=== PATIENT | female | born 1990 | race African-American/Black ===

== ENCOUNTER 2017-06-15 08:52 | Inpatient (IN) | payer OTHER ==
[2017-06-15] MEDS ORDERED: CITRIC ACID/SODIUM CITRATE 30 ML UNIT-DOSE CUP PO ONE (11:27)
[2017-06-15] MEDS ORDERED: ELECTROLYTE-148 SOLN 500 ML IV ONE (11:27)
[2017-06-15] MEDS ORDERED: ELECTROLYTE-148 SOLN 1,000 ML IV SCH (11:30)
[2017-06-15 11:36] VITALS: BMI 31.9
[2017-06-15 11:41] LABS: URINE APPEARANCE SLCLOUDY; URINE BILIRUBIN NEGATIVE (NEGATIVE); URINE BLOOD NEGATIVE (NEGATIVE); URINE COLOR YELLOW; URINE GLUCOSE (UA) NEGATIVE (NEGATIVE); URINE KETONE NEGATIVE (NEGATIVE); URINE NITRITE NEGATIVE (NEGATIVE); URINE PROTEIN NEGATIVE (NEGATIVE); URINE UROBILINOGEN NEGATIVE mg/dL (0.2-1.0)
[2017-06-15 11:42] LABS: COCAINE, UR NEGATIVE ng/ml (CUTOFF=300); METHADONE, UR NEGATIVE ng/ml (CUTOFF=300); OPIATES, URI NEGATIVE ng/ml (CUTOFF=300); PHENCYCLIDINE,URINE NEGATIVE ng/ml (CUTOFF=25); URINE AMPHETAMINES NEGATIVE ng/ml (CUTOFF=500); URINE BARBITURATES NEGATIVE ng/ml (CUTOFF=200); URINE BENZODIAZEPINES NEGATIVE ng/ml (CUTOFF=200)
[2017-06-15 11:43] LABS: URINE LEUK ESTERASE 1+ (NEGATIVE)
[2017-06-15 11:48] LABS: BASO % 0.2 % (0-2.0); EOS % 0.2 % (0-4.5); HEMATOCRIT 28.1 % (32.4-45.2); HEMOGLOBIN 8.3 GM/dL (10.7-15.3); LYMPH % 15.8 % (8-40); MCHC 29.5 g/dl (32.0-36.0); MEAN CELL VOLUME 63.7 fl (80-96); MEAN PLT VOLUME 8.5 fl (7.5-11.1); MONO % 6.3 % (3.8-10.2); NEUT % 77.5 % (42.8-82.8); PLATELET COUNT 174 K/MM3 (134-434); RBC 4.41 M/mm3 (3.60-5.2); RDW 19.8 % (11.6-15.6)
[2017-06-15 11:50] LABS: ADD RBC MORPHOLOGY YES; INR 1.02 (0.82-1.09); MCH 18.8 pg (25.7-33.7); PROTHROMBIN TIME (PATIENT) 11.5 SEC (9.98-11.88)
[2017-06-15 11:50] LABS: EPI CELLS MODERATE /HPF (FEW)
[2017-06-15 11:53] LABS: ACTIVATED PTT 24.7 SECONDS (26.9-34.4)
[2017-06-15 11:55] LABS: ALBUMIN 2.5 g/dl (3.4-5.0); ANION GAP 10 (8-16); BLOOD UREA NITROGEN 6 mg/dL (7-18); CALCIUM 8.3 mg/dL (8.5-10.1); CHLORIDE 107 mmol/L (98-107); CO2 22 mmol/L (21-32); CREATININE 0.6 mg/dL (0.55-1.02); GLUCOSE,RANDOM 74 mg/dL (74-106); POTASSIUM 4.3 mmol/L (3.5-5.1); SGOT/AST 21 U/L (15-37); SGPT/ALT 23 U/L (12-78); SODIUM 139 mmol/L (136-145); URIC ACID 4.2 mg/dL (2.6-7.2)
[2017-06-15 11:57] LABS: ALK PHOS 193 U/L (45-117); BILIRUBIN,TOTAL 0.4 mg/dL (0.2-1.0); TOT PROT 6.3 g/dl (6.4-8.2)
[2017-06-15 12:10] LABS: ANISOCYTOSIS 2+
--- NOTE | 2017-06-15 12:33 | HP ---
Past Medical History - Primary Care Physician PCP:: Malka Viera - Admission Chief Complaint: 26 yrs , 39.2 weeks ,previous c/section requests for repeat c/section History of Present Illness: pt presented today c/o pain , no uc were note, cx was closed, she was not in labor . sonogram was done report : 38.6/7 weeks, sliup, vx, LORE 14.8 cm , ant placenta , Bpp8/8 Pt requested for repeat c/section care in [facility], , late registered at [address] [place] [address] on 05/13/17t 34 weeks . .work up : O pos, Rpr nr, Rubella pos, Hbsag neg, Quantiferon neg, Hgba1c 5.7, Hiv neg, Gbs neg, gc/ct neg, pap NILM h/o depression during , she took zoloft 50 mg po daily ,for 1 week, she stopped . she states she is seeing psyche social contact worker q 1 week at [address] [place] [address] History Source: Patient, Medical Record Limitations to Obtaining History: No Limitations - Past Medical History PROP MAKER: No: CVA, Migraine, Seizure Cardiovascular: No: HTN, Murmur Pulmonary: Yes: Asthma (rx albuterol PRN) Gastrointestinal: Yes: Constipation Hepatobiliary: No: Cholelithiasis Renal/: No: UTI ...: 3 ...Para: 2 (12/22/2007 6'8' [facility] ) ...Term: 2 ( primary lftc/s, 7'8" nonreassuring fhr , h/o post epidural pt unresponsive [facility]) ...: 0 ...Spon : 0 ...Induced : 0 ...Multiple Gestation: 0 ...LMP: 09/26/16 ... Weeks Gestation by Dates: 37.3 ...EDC by Dates: 07/03/17 ...EDC by Sono: 06/20/17 (39.2 weeks by sono of 15.5 weeks, on 01/01/2017 ) Heme/Onc: Yes: Anemia Psych: Yes: Anxiety, Depression (h/o during current pregn, rx po zoloft for 1 week h/o pp depression post 2 nd delivery treatment at [facility]), Panic, Other (agrophobia) - Past Surgical History Past Surgical History: Yes: (06/18/2015) Hx Myomectomy: No Hx Transabdominal Cerclage: No - Smoking History Smoking history: Never smoked - Alcohol/Substance Use Hx Alcohol Use: No History of Substance Use: reports: None Home Medications - Allergies Allergies/Adverse Reactions: Allergies Allergy/AdvReac Type Severity Reaction Status Date / Time No Known Allergies Allergy Verified 06/15/17 11:39 - Home Medications Home Medications: Ambulatory Orders Albuterol Sulfate Inhaler - [Ventolin Hfa Inhaler -] 1 - 2 inh PO QID PRN Ferrous Sulfate [Feosol] 325 mg PO DAILY 06/15/17 Family Disease History - Family Disease History Family Disease History: Other: Mother (extreme anxiety and panic) Physical Exam - Maternity Vital Signs: Vital Signs Temperature 98.6 F 06/15/17 12:00 Pulse Rate 94 H 06/15/17 12:00 Respiratory Rate 20 06/15/17 12:00 Blood Pressure 106/57 06/15/17 12:00 O2 Sat by Pulse Oximetry (%) Selected Entries 06/15/17 10:40 Weight 192 lb Constitutional: Yes: Well Nourished, No Distress Eyes: Yes: WNL HENT: Yes: WNL, Normocephalic Neck: Yes: WNL Cardiovascular: Yes: WNL, Regular Rate and Rhythm Lungs: Clear to auscultation Breast(s): Yes: WNL - Abdominal Exam/OB Fundal Height: 40 Number of Fetuses: Single Presentation: Vertex Contractions: No Monitor Mode: External Heart Rate (range): 130 Heart Rate Location: [facility] Category: I Accelerations: Uniform Decelerations: None - Vaginal Exam/OB Vaginal Bleediing: No Speculum Exam: No Dilatation (cm): close Effacement (%): unefface Presentation: Vertex/Position Station: -3 - Physical Exam Musculoskeletal: Yes: WNL Extremities: Yes: WNL. No: Calf Tenderness Edema: Yes Edema: LLE: 1+, RLE: 1+ Integumentary: Yes: WNL, Incision (old pfannensteil scar) Deep Tendon Reflex Grade: Normal +2 ...Motor Strength: WNL Psychiatric: Yes: WNL, Alert, Oriented - Labs Lab Results: CBC, BMP 06/15/17 11:05 06/15/17 11:05 Laboratory Tests 06/15/17 06/15/17 06/15/17 09:00 09:00 11:05 PT with INR 11.50 INR 1.02 PTT (Actin FS) 24.7 L Calcium AST ALT Urine Protein Negative Urine WBC (Auto) 4 Urine RBC (Auto) 2 Opiates Screen Negative Methadone Screen Negative Barbiturate Screen Negative Phencyclidine Screen Negative Ur Amphetamines Screen Negative MDMA (Ecstasy) Screen Negative Benzodiazepines Screen Negative Cocaine Screen Negative U Marijuana (THC) Screen Negative 06/15/17 11:05 PT with INR INR PTT (Actin FS) Calcium 8.3 L AST 21 ALT 23 D Urine Protein Urine WBC (Auto) Urine RBC (Auto) Opiates Screen Methadone Screen Barbiturate Screen Phencyclidine Screen Ur Amphetamines Screen MDMA (Ecstasy) Screen Benzodiazepines Screen Cocaine Screen U Marijuana (THC) Screen Hemorrhage Risk Assessment - Risk Factors Medium Risk Factors: Yes: Prior , uterine surgery,or multiple laparotomies Risk Score: 1 Risk Level: Medium Risk Problem List - Problems (1) with 39 completed weeks gestation Code(s): Z3A.39 - 39 WEEKS GESTATION OF (2) Previous section Code(s): Z98.891 - HISTORY OF UTERINE SCAR FROM PREVIOUS SURGERY (3) Anemia Code(s): D64.9 - ANEMIA, UNSPECIFIED Qualifiers: Anemia type: iron deficiency Iron deficiency anemia type: inadequate dietary iron intake Qualified Code(s): D50.8 - Other iron deficiency anemias (4) Depression affecting Code(s): O99.340 - OTH MENTAL DISORDERS COMPLICATING , UNSP TRIMESTER; F32.9 - MAJOR DEPRESSIVE DISORDER, SINGLE EPISODE, UNSPECIFIED (5) Depression affecting , antepartum Code(s): O99.340 - OTH MENTAL DISORDERS COMPLICATING , UNSP TRIMESTER; F32.9 - MAJOR DEPRESSIVE DISORDER, SINGLE EPISODE, UNSPECIFIED Assessment/Plan 26 years , previous c/section, 39.2/7 weeks, requets for Repeat c/section. gbs unknown , anemia Plan repeat LFTc/s
[2017-06-15] MEDS ORDERED: ceFAZolin SODIUM 1 GM VIAL ONE (16:03)
[2017-06-15] MEDS ORDERED: morphine SULFATE/Preservative Free 0.5 MG/ML (1cc Syringe) ONE (16:03)
[2017-06-15] MEDS ORDERED: OXYTOCIN 20 UNITS in 0.9% NS 20 UNIT/1,000 ML INFUS.BAG IV ONE ×2 (16:23→18:00)
[2017-06-15] MEDS ORDERED: ePHEDrine SULFATE 50 MG/1 ML AMPULE ONE (16:56)
[2017-06-15] MEDS ORDERED: MIDAZOLAM HCL 2 MG/2 ML SINGLE DOSE VIAL ONE (17:16)
[2017-06-15] MEDS ORDERED: morphine SULFATE/Preservative Free 0.5 MG/ML (1cc Syringe) SPIN ONE (17:34)
[2017-06-15] MEDS ORDERED: ONDANSETRON 4 MG/2 ML VIAL IVPUSH PRN (17:34)
[2017-06-15] MEDS ORDERED: IBUPROFEN 600 MG TABLET (FP) PO PRN (17:34)
[2017-06-15] MEDS ORDERED: ACETAMINOPHEN 325 MG TABLET (FP) PO PRN (17:34)
[2017-06-15] MEDS ORDERED: SENNOSIDES/DOCUSATE COMBO (SENNA PLUS) TABLET (UD) PO PRN (17:48)
[2017-06-15] MEDS ORDERED: METHYLERGONOVINE MALEATE 0.2 MG/1 ML AMP IM PRN (17:48)
[2017-06-15] MEDS: OXYTOCIN 20 UNITS in 0.9% NS 20 UNIT/1,000 ML INFUS.BAG IV SCH (18:00)
--- NOTE | 2017-06-15 18:07 | PN ---
Delivery - Delivery Section: Repeat, Low Flap Transverse (39.2 weeks, previous c/s, requets repeat c/s) Type of Anesthesia: Spinal Episiotomy/Laceration: None EBL (cc): 800 (loyola output 50 ml courtney color ) Delivery, Single - Stages of Labor Date of Delivery: 06/15/17 Time of Delivery: 17:00 Time Placenta Delivered: 17:01 Placenta: Yes: Manual Removal, Uterine Exploration - Condition of Infant Supervisor [employer]/Computer Science Professor Present: Yes Name: Lizbeth Renee Infant Gender: Female Weight: 8 lb 3 oz Position: Right, OP Total Hours ROM (Hrs/Mins): 0hrs 2min - 1 Minute Total Score: 9 5 Minutes Total Score: 9 - Feeding Plan Initial Plan: Elected not to breastfeed exclusively throughout hospitalization Remarks - Remarks Remarks: 26 yrs , previous c/section x1, 39.2/7 weeks, previous c/section , Gbs neg pnc at , [facility], late registrant h/o anemia h/o depression . intra op course uneventful
--- NOTE | 2017-06-15 18:13 | OP ---
Operative Note - Note: Operative Date: 06/15/17 Pre-Operative Diagnosis: 39.2/7 weeks, previous c/s requests repeat c/s Operation: Repeat LFTC/section Findings: 5.00 PM , Baby Girl, 9/9, ROP position , Wt 8'3" AFluid large amount, clear, courtney color Both tubes & ovaries normal Dr Renee contractor buyer present in the OR Surgeon: Malka Viera Tool Inspector: Agustín Shepard Anesthesiologist/PODIATRIST ORTHOPEDIC: Seamus Dutton Anesthesia: Spinal Specimens Removed: cord blood. placenta Estimated Blood Loss (mls): 800 Drains, Volume Out (mls): 50 (courtney loyola output ) Fluid Volume Replaced (mls): 1,800 (IV Ancef 2 gm prior to incision ) Operative Report Dictated: Yes
[2017-06-15] MEDS ORDERED: IBUPROFEN 800 MG/8 ML IJ IVPB ONE (18:34)
[2017-06-15] MEDS: IBUPROFEN 800 MG/8 ML IJ IVPB PRN (18:39)
--- NOTE | 2017-06-15 18:51 | OP ---
DATE OF OPERATION: 06/15/2017 PREOPERATIVE DIAGNOSIS: Patient at 39-2/7 weeks, previous section, requests repeat section. OPERATION DONE: Repeat low-flap transverse section. SURGEON: Malka Viera MD FIELD HEALTH OFFICER SURGEON: SPARKLE Caballero ANESTHESIOLOGIST: Seamus Dutton MD ANESTHESIA: Spinal. FINDINGS: This is a 26-year-old, 3, para 2-0-0-2, with previous section x1, is at 39-2/7 weeks, came with complaints of pain, cervix was closed, patient was not in labor. She requested for repeat section, and biophysical profile was 8/8. PROCEDURE: Abdomen was shaved, prepped. Kate was placed. Patient was taken to the operating room table. Spinal anesthesia was given. She was placed in supine position. Abdomen was painted and draped in the usual manner. A Pfannenstiel incision was made around the previous scar, which was keloid, and the previous scar was excised and subcutaneous tissue, anterior rectus sheath was incised transversely. Bleeding points were clamped and cauterized. Rectus muscle was from the rectus sheath. Parietal peritoneum was opened vertically. Lower flap parietal peritoneum was incised transversely. Bladder was pushed down. Lower uterine segment was incised transversely. Amniotic fluid was large amount, clear. Then the baby was delivered from ROP position at 5 p.m. was 9 and 9. Cord was clamped, cut, cord blood was collected. Baby girl. Baby's weight was [address] Renee, strategic marketing leader, was present in the OR. Then placenta was removed completely with the membranes. Uterine massage was given and anesthesiologist was asked to increase the Pitocin in the IV fluid, and then closure of the uterine incision was done in 2 layers, first layer was a continuous locking with a Biosyn 0 suture, second was a continuous intermittent locking with a Biosyn 0 suture. A second layer with vertical mattress sutures was taken. Bladder peritoneum also was closed with Biosyn 0 suture and continuous sutures were taken. Hemostasis was verified. Both tubes and ovaries were normal. Sponge, instrument, needle count was correct. Irrigation was done. Then the closure of the abdomen was done. Parietal peritoneum was closed with Vicryl 0 suture. Muscles were reapproximated together with Vicryl 0 interrupted sutures underneath the rectus sheath flaps. Hemostasis was checked. Anterior rectus sheath was closed with Vicryl 0 continuous sutures. Hemostasis was checked in subcutaneous tissue. Subcutaneous tissue was reapproximated with Biosyn 0 suture. The skin was approximated with karina. Pressure dressing was given. Blood clots were removed from the vagina. The uterus was now firm. Estimated blood loss was 800 mL intraoperatively. Urine output was 50 mL. It was courtney color. IV fluids 1800 mL she received. She received 2 g of IV Ancef prior to the incision. She was transferred to the recovery room in stable condition. Fletcher [id number]
[2017-06-16] MEDS ORDERED: OXYTOCIN 20 UNITS in 0.9% NS 40 UNIT/2,000 ML INFUS.BAG IV ONE (01:36)
[2017-06-16] MEDS: CEFAZOLIN 1 GM PUSH 1 GM/10 ML DISP.SYRIN IVPUSH SCH ×3 (01:48→17:14)
[2017-06-16] MEDS ORDERED: CEFAZOLIN 1 GM/D5W 50 ML IVPB SCH (02:00)
[2017-06-16] MEDS: OXYTOCIN 20 UNITS in 0.9% NS 20 UNIT/1,000 ML INFUS.BAG IV SCH (03:19)
[2017-06-16] MEDS: IBUPROFEN 800 MG/8 ML IJ IVPB PRN (07:22)
[2017-06-16] MEDS: SIMETHICONE 80 MG TAB.CHEW (FP) PO PRN ×2 (07:22→21:24)
[2017-06-16 09:06] LABS: BASO % 0.3 % (0-2.0); EOS % 0.2 % (0-4.5); HEMATOCRIT 25.6 % (32.4-45.2); HEMOGLOBIN 7.6 GM/dL (10.7-15.3); LYMPH % 13.8 % (8-40); MCHC 29.9 g/dl (32.0-36.0); MEAN CELL VOLUME 62.9 fl (80-96); MEAN PLT VOLUME 8.3 fl (7.5-11.1); MONO % 8.6 % (3.8-10.2); NEUT % 77.1 % (42.8-82.8); PLATELET COUNT 151 K/MM3 (134-434); RBC 4.07 M/mm3 (3.60-5.2); RDW 19.8 % (11.6-15.6); WHITE BLOOD COUNT 12.6 K/mm3 (4.0-10.0)
[2017-06-16 09:10] LABS: MCH 18.8 pg (25.7-33.7)
--- NOTE | 2017-06-16 09:11 | PN ---
Progress Note (short form) - Note Progress Note: Anesthesiology Post-op POD#1 s/p Repeat C/S under spinal anesthesia. Pt. is awake and alert, denies pain or headache. She is able to move her legs and has no complaints. No ON issues. VSS.
--- NOTE | 2017-06-16 09:49 | PN ---
Post Progress Note - Subjective Subjective: c/o pain scale 3-4/10 not oob yet no c/o dizziness Post Day: 1 Type of Delivery: Repeat C/S Vital Signs: Vital Signs Temperature 98 F 06/16/17 09:31 Pulse Rate 92 H 06/16/17 09:31 Respiratory Rate 18 06/16/17 09:31 Blood Pressure 119/72 06/16/17 09:31 O2 Sat by Pulse Oximetry (%) 100 06/15/17 18:45 Breast Exam: Yes: Soft, Other (plans to BF ). No: Engorged Uterus: Yes: Fundus Firm, Fundus below umbilicus, Non-tender Incision: Yes: Dressing dry and intact. No: Redness, Oozing Abdomen/GI: Yes: Abdomen soft (bs active ), Tolerating PO (clear liqiuds ). No : Abdominal Distention, Passing flatus Lochia: Yes: Rubra Lochia, amount: Moderate Extremities: Yes: Calves non-tender (scd in situ ) Perineum: Yes: Intact Activity: Other (not oob yet ) - Labs Labs: CBC WBC 12.6 K/mm3 (4.0-10.0) H 06/16/17 08:00 RBC 4.07 M/mm3 (3.60-5.2) 06/16/17 08:00 Hgb 7.6 GM/dL (10.7-15.3) L 06/16/17 08:00 Hct 25.6 % (32.4-45.2) L 06/16/17 08:00 MCV 62.9 fl (80-96) L 06/16/17 08:00 MCH 18.8 pg (25.7-33.7) L 06/16/17 08:00 MCHC 29.9 g/dl (32.0-36.0) L 06/16/17 08:00 RDW 19.8 % (11.6-15.6) H 06/16/17 08:00 Plt Count 151 K/MM3 (134-434) 06/16/17 08:00 MPV 8.3 fl (7.5-11.1) 06/16/17 08:00 Neutrophils % 77.1 % (42.8-82.8) 06/16/17 08:00 Lymphocytes % 13.8 % (8-40) 06/16/17 08:00 Monocytes % 8.6 % (3.8-10.2) 06/16/17 08:00 Eosinophils % 0.2 % (0-4.5) 06/16/17 08:00 Basophils % 0.3 % (0-2.0) 06/16/17 08:00 Hypochromia 2+ 06/15/17 11:05 Polychromasia 1+ 06/15/17 11:05 Anisocytosis 2+ 06/15/17 11:05 Microcytosis 2+ 06/15/17 11:05 Other Findings, Remarks: RS cta i/o 1720/1400 ml loyola in situ draining courtney color urine Problem List - Problems (1) with 39 completed weeks gestation Code(s): Z3A.39 - 39 WEEKS GESTATION OF (2) Previous section Code(s): Z98.891 - HISTORY OF UTERINE SCAR FROM PREVIOUS SURGERY (3) Anemia Code(s): D64.9 - ANEMIA, UNSPECIFIED Qualifiers: Anemia type: iron deficiency Iron deficiency anemia type: inadequate dietary iron intake Qualified Code(s): D50.8 - Other iron deficiency anemias (4) Depression affecting Code(s): O99.340 - OT MENTAL DISORDERS COMPLICATING , UNSP TRIMESTER; F32.9 - MAJOR DEPRESSIVE DISORDER, SINGLE EPISODE, UNSPECIFIED (5) Depression affecting , antepartum Code(s): O99.340 - [facility] MENTAL DISORDERS COMPLICATING , UNSP TRIMESTER; F32.9 - MAJOR DEPRESSIVE DISORDER, SINGLE EPISODE, UNSPECIFIED Assessment/Plan severe anemia, post op hgb low pt is aware , not oob yet . v/s are stable r/b/a of transfusion discussed she declines transfusion ct incentive spirometer, iv fluid kvo until antibiotics completed
[2017-06-16] MEDS ORDERED: OXYTOCIN 20 UNITS in 0.9% NS 20 UNIT/1,000 ML INFUS.BAG IV SCH (10:00)
[2017-06-16] MEDS ORDERED: SODIUM CHLORIDE 0.9%/KCL 20 MEQ/1,000 ML INFUS.BAG IV SCH (10:00)
[2017-06-16] MEDS ORDERED: oxyCODONE HCL 5 MG TABLET PO PRN ×2 (10:00)
[2017-06-16] MEDS: ENOXAPARIN NA (PORCINE) 40 MG/0.4 ML DISP.SYRIN SQ SCH (10:02)
[2017-06-16] MEDS: FERROUS SO4 325 MG TABLET (FP) PO SCH ×2 (10:42→18:34)
[2017-06-16] MEDS: PRENATAL VITAMINS W/ FOLIC ACID TABLET (FP) PO SCH (10:42)
--- NOTE | 2017-06-16 14:15 | CON.PSY ---
Psychiatry Consult Chief Complaint: 26 year old fem,a;e with a history of Panic and depressive Disorder. s? p csection. patient seen for psych eval. Symptoms: reports: Depressed Mood, Anxiety - Previous Psychiatric Treatment Outpatient: Less than 6 mos ago Inpatient: None - Previous Substance Abuse Treatment Outpatient: None - Reason for Previous Treatment Reason for Previous Treatment: Major Depression, Anxiety or Panic Disorder - Current Medications Current Medications: Active Medications Acetaminophen (Tylenol Oral Solution -) 650 mg PO Q4H PRN PRN Reason: FEVER OR PAIN Bisacodyl (Dulcolax Suppository -) 10 mg RC PRN PRN PRN Reason: CONSTIPATION Diphenhydramine HCl (Benadryl Injection -) 25 mg IVPUSH Q4H PRN PRN Reason: Pruritis Last Admin: 06/15/17 19:25 Dose: 25 mg Diphtheria/Tetanus/Acell Pertussis (Boostrix -) 0.5 ml IM .ONCE ONE Stop: 06/16/17 10:01 Enoxaparin Sodium (Lovenox -) 40 mg SQ DAILY [facility] Last Admin: 06/16/17 10:02 Dose: 40 mg Escitalopram Oxalate (Lexapro -) 5 mg PO DAILY [facility] -) [facility] Last Admin: 06/16/17 10:42 Dose: Not Given Cefazolin Sodium (Ancef -) 1 gm in 10 mls @ 100 mls/hr IVPUSH Q8H-IV [facility] Stop: 06/17/17 01:59 Last Admin: 06/16/17 09:13 Dose: 100 mls/hr Oxytocin/Sodium Chloride (Normal Saline+20 Units Oxytocin -) 20 unit in 1,000 mls @ 50 mls/hr IV ASDIR [facility] Ibuprofen (Caldolor Injection -) 800 mg IVPB Q8H PRN PRN Reason: PAIN OR FEVER Last Admin: 06/16/17 07:22 Dose: 800 mg Ibuprofen (Motrin Oral Suspension -) 600 mg PO Q4H PRN PRN Reason: PAIN Methylergonovine Maleate (Methergine Injection -) 0.2 mg IM Q4H PRN PRN Reason: Excessive Bleeding (L&D) Ondansetron HCl (Zofran Injection) 4 mg IVPUSH Q4H PRN PRN Reason: NAUSEA Oxycodone HCl (Roxicodone -) 5 mg PO Q4H PRN PRN Reason: PAIN LEVEL 1-5 Oxycodone HCl (Roxicodone -) 10 mg PO Q4H PRN PRN Reason: PAIN LEVEL 6-10 Stop: 06/17/17 09:59 Multivit/Folic Acid/Iron ( Vitamins (Sjr) -) 1 tab PO DAILY [facility] Last Admin: 06/16/17 10:42 Dose: Not Given Senna/Docusate Sodium (Pericolace -) 2 tablet PO HS PRN PRN Reason: CONSTIPATION Simethicone (Mylicon -) 80 mg PO Q4H PRN PRN Reason: GAS Last Admin: 06/16/17 07:22 Dose: 80 mg - Allergies Allergies: Allergies Allergy/AdvReac Type Severity Reaction Status Date / Time No Known Allergies Allergy Verified 06/15/17 11:39 - Current Living Status Usual Living Arrangement: With Parent - Current Mental Status Evaluation Appearance: Well Groomed Attitude: Cooperative - Affect Affect: Full Range Appropriateness: Appropriate to Content - Mood Mood: Anxious - Speech/Language Expressive: Coherent - Psychomotor Activity Psychomotor Activity: Slowed - Thought Process Thought Process: Intact - Thought Content Hallucinations: Absent Delusions: Absent - Self Perception Self Perception: No Impairment - Cognition Attention: Alert Orientation: Time Memory, Immediate Recall: Intact Memory, Short Term: 3/3 Memory, Remote with Promptin/3 - Concentration Serial Sevens Intact: Yes Simple Calculations Intact: Yes - Abstraction Proverb Interpretation: Intact Judgement: Intact - Insight Insight: Intact - Impulse Control Impulse Control: Good Control - Suicidal Ideation Suicidal Ideation: No - Homicidal Ideation Homicidal Ideation: No Assessment/Plan 1) start Lexapro 5mg po od 2) patient will follow up at [facility].
[2017-06-16] MEDS: IBUPROFEN 100 MG/5 ML UNIT DOSE CUPS PO PRN ×2 (14:29→21:23)
[2017-06-16] MEDS ORDERED: DIPHTH,PERTUSS(ACELL),TET 0.5 ML DISP.SYRIN IM ONE (17:15)
[2017-06-16] MEDS ORDERED: BISACODYL 10 MG SUPP.RECT RC PRN (17:48)
[2017-06-16] MEDS ORDERED: ALBUTEROL SO4 18 GM HFA INHALER IH PRN (21:18)
[2017-06-16] MEDS: ACETAMINOPHEN 650 MG/20.3 ML ORAL SOLUTION (CUPS) PO PRN (21:22)
[2017-06-17] MEDS: IBUPROFEN 100 MG/5 ML UNIT DOSE CUPS PO PRN ×4 (03:17→21:29)
[2017-06-17] MEDS: ACETAMINOPHEN 650 MG/20.3 ML ORAL SOLUTION (CUPS) PO PRN ×4 (03:18→21:29)
[2017-06-17] MEDS: SIMETHICONE 80 MG TAB.CHEW (FP) PO PRN ×4 (03:19→21:29)
--- NOTE | 2017-06-17 03:35 | PN ---
Post Progress Note - Subjective Subjective: no c/o dizziness pain scale 8/10 before pain meds, she mainly feels pain when she gets oob . c/o anxiety to the nurse Post Day: 2 Type of Delivery: Repeat C/S Vital Signs: Vital Signs Temperature 98.8 F 06/16/17 21:38 Pulse Rate 89 06/16/17 21:38 Respiratory Rate 18 06/16/17 21:38 Blood Pressure 126/82 06/16/17 21:38 O2 Sat by Pulse Oximetry (%) 100 06/15/17 18:45 Breast Exam: Yes: Soft, Other (not BF ). No: Engorged Uterus: Yes: Fundus Firm, Fundus below umbilicus, Non-tender Incision: Yes: Dressing dry and intact, Yung intact. No: Redness, Oozing ( to be removed ) Abdomen/GI: Yes: Abdomen soft (bs active ), Passing flatus (bm not done. sometimes gaseous disconfort ), Tolerating PO (diet ). No: Abdominal Distention , Tender Lochia: Yes: Rubra Lochia, amount: Moderate Extremities: Yes: Calves non-tender Perineum: Yes: Intact Activity: Ambulating - Labs Labs: CBC WBC 12.6 K/mm3 (4.0-10.0) H 06/16/17 08:00 RBC 4.07 M/mm3 (3.60-5.2) 06/16/17 08:00 Hgb 7.6 GM/dL (10.7-15.3) L 06/16/17 08:00 Hct 25.6 % (32.4-45.2) L 06/16/17 08:00 MCV 62.9 fl (80-96) L 06/16/17 08:00 MCH 18.8 pg (25.7-33.7) L 06/16/17 08:00 MCHC 29.9 g/dl (32.0-36.0) L 06/16/17 08:00 RDW 19.8 % (11.6-15.6) H 06/16/17 08:00 Plt Count 151 K/MM3 (134-434) 06/16/17 08:00 MPV 8.3 fl (7.5-11.1) 06/16/17 08:00 Neutrophils % 77.1 % (42.8-82.8) 06/16/17 08:00 Lymphocytes % 13.8 % (8-40) 06/16/17 08:00 Monocytes % 8.6 % (3.8-10.2) 06/16/17 08:00 Eosinophils % 0.2 % (0-4.5) 06/16/17 08:00 Basophils % 0.3 % (0-2.0) 06/16/17 08:00 Hypochromia 2+ 06/15/17 11:05 Polychromasia 1+ 06/15/17 11:05 Anisocytosis 2+ 06/15/17 11:05 Microcytosis 2+ 06/15/17 11:05 Problem List - Problems (1) with 39 completed weeks gestation Code(s): Z3A.39 - 39 WEEKS GESTATION OF (2) Previous section Code(s): Z98.891 - HISTORY OF UTERINE SCAR FROM PREVIOUS SURGERY (3) Anemia Code(s): D64.9 - ANEMIA, UNSPECIFIED Qualifiers: Anemia type: iron deficiency Iron deficiency anemia type: inadequate dietary iron intake Qualified Code(s): D50.8 - Other iron deficiency anemias (4) Depression affecting Code(s): O99.340 - OT MENTAL DISORDERS COMPLICATING , UNSP TRIMESTER; F32.9 - MAJOR DEPRESSIVE DISORDER, SINGLE EPISODE, UNSPECIFIED (5) Depression affecting , antepartum Code(s): O99.340 - [facility] MENTAL DISORDERS COMPLICATING , UNSP TRIMESTER; F32.9 - MAJOR DEPRESSIVE DISORDER, SINGLE EPISODE, UNSPECIFIED Assessment/Plan post c/section day #2 severe anemia, hemodynamically stable . Plan ct po care. encourage ambulation, po fluids Dr Vines psyche consult noted & appreciated pt is placed on PO Lexapro 5 mg daily , she will follow at [facility].
[2017-06-17] MEDS: ENOXAPARIN NA (PORCINE) 40 MG/0.4 ML DISP.SYRIN SQ SCH (09:18)
[2017-06-17] MEDS: PRENATAL VITAMINS W/ FOLIC ACID TABLET (FP) PO SCH (09:19)
[2017-06-17] MEDS: FERROUS SO4 325 MG TABLET (FP) PO SCH ×2 (09:19→17:31)
[2017-06-17] MEDS: ESCITALOPRAM OXALATE 10 MG TABLET (FP) PO SCH (09:20)
[2017-06-18 08:17] VITALS: BP 129/80; PULSE 73; TEMP 98.2
--- NOTE | 2017-06-18 08:29 | DS ---
Physical Exam-SPRING FITTER Vital Signs: Vital Signs Temperature 98.2 F 06/18/17 07:15 Pulse Rate 73 06/18/17 07:15 Respiratory Rate 20 06/18/17 07:15 Blood Pressure 129/80 06/18/17 07:15 O2 Sat by Pulse Oximetry (%) 100 06/15/17 18:45 Constitutional: Yes: Well Nourished, Pallor, Other (parvez c/o dizziness. painscale 5-6/10. c/o backache) Eyes: Yes: WNL HENT: Yes: WNL Neck: Yes: WNL Cardiovascular: Yes: WNL Respiratory: Yes: WNL Gastrointestinal: Yes: WNL, Normal Bowel Sounds, Soft. No: Distention ...Rectal Exam: Yes: WNL Renal/: Yes: WNL External Genitalia: Yes: Normal ....Post : Yes: Uterus firm, Uterus non-tender, Moderate lochia rubra Breast(s): Yes: WNL (not engorged. mainly bottle feeding) Musculoskeletal: Yes: WNL Extremities: Yes: WNL. No: Calf Tenderness Edema: Yes Edema: LLE: 1+, RLE: 1+ Integumentary: Yes: WNL, Tattoos Wound/Incision: Yes: Clean/Dry, Well Approximated, Yung Intact, Open to air. No: Draining, Reddened, Bleeding Neurological: Yes: WNL, Alert, Oriented ...Motor Strength: WNL Psychiatric: Yes: WNL, Alert, Oriented Labs: CBC, BMP 06/15/17 11:05 Laboratory Tests 06/18/17 07:30 WBC 10.1 H RBC 4.25 Hgb 8.1 L Hct 26.9 L MCV 63.4 L MCH 19.1 L MCHC 30.1 L RDW 20.0 H Neutrophils % 66.9 Lymphocytes % 24.0 D Monocytes % 7.4 Eosinophils % 1.2 D Delivery - Delivery Section: Repeat, Low Flap Transverse (39.2 weeks, previous c/s, requets repeat c/s) Type of Anesthesia: Spinal Episiotomy/Laceration: None EBL (cc): 800 (loyola output 50 ml courtney color ) Delivery, Single - Stages of Labor Date of Delivery: 06/15/17 Time of Delivery: 17:00 Time Placenta Delivered: 17:01 Placenta: Yes: Manual Removal, Uterine Exploration - Condition of Infant Minute Clerk For Basic Traffic/Pattern Wheel Maker Present: Yes Name: Lizbeth Renee Gender: Female Weight: 8 lb 3 oz Position: Right, OP Total Hours ROM (Hrs/Mins): 0hrs 2min - 1 Minute Total Score: 9 5 Minutes Total Score: 9 - [place] Feeding Plan Initial Plan: Elected not to breastfeed exclusively throughout hospitalization Remarks - Remarks Remarks: 26 yrs , previous c/section x1, 39.2/7 weeks, previous c/section , Gbs neg pnc at , [facility], late registrant h/o anemia h/o depression . intra op course uneventful severe anemia . Hemodynamically stable counselled for anemia. refused pack cell transfusion will continue po iron & vit & iron . she will rtc for yung removal requests for discharge today Discharge Summary Reason For Visit: LABOR ADMIT/ Current Active Problems Anemia (Acute) Delivery by emergency section (Acute) Depression affecting (Acute) Depression affecting , antepartum (Acute) with 39 completed weeks gestation (Acute) Previous section (Acute) Condition: Stable - Instructions Diet, Activity, Other Instructions: Dr Loyd Post Instructions DIET: Continue good diet high in protein, calcium, and iron rich foods. Drink at least eight (8) glasses of water daily in addition to other fluids. Ct Regular diet MEDICATIONS: Continue vitamins and iron as previously directed. Motrin and Tylenol may be taken for minor discomfort. ACTIVITY: Mild to moderate exercise may be started in two (2) weeks. Take frequent rest periods. Resume normal activity after six (6) week check up. WOUND CARE OF OPERATIVE SITE: Continue use of perineal bottle until vaginal discharge stops. Keep area clean. Shower daily. Keep abdominal wound dry. Report any drainage or redness to physician. Tub baths, tampons and douches are not permitted for [address] Breast feeding & or Bottle feeding BREAST CARE: (For those that are not breast feeding): If engorgement occurs: Wear tight fitting bra. Take Tylenol or Motrin for pain. Apply cold packs (ice in bags to each breast ) FAMILY PLANNING: There are many control alternatives to pursue and they should be discussed at your first office visit. You may resume sexual activity after your six (6) week check up. (Remember, breast feeding is not a contraceptive) NEXT PHYSICIAN APPOINTMENT: Be certain to call for a one (1) week appointment, unless otherwise directed. RTC 06/24/17Friday for removal of yung . Follow with Dr Loyd & Call [facility] foer appointment for mental health follow up Call Clinic or got to Emergency Dept if you have any of the following: Heavy vaginal bleeding Painful urination Leg pain Unusual odor noted to vaginal bleeding High fever Red streaking noted on breast f/u with [facility] outpatient psych. therapist, call clinic for an appointment. Referrals: Kim Loyd MD [Staff Physician] - Malka Viera MD [Staff Physician] - Disposition: HOME - Home Medications Comprehensive Discharge Medication List: Ambulatory Orders Albuterol Sulfate Inhaler - [Ventolin HFA Inhaler -] 1 - 2 inh PO QID PRN Ferrous Sulfate [Feosol] 325 mg PO DAILY 06/15/17 Acetaminophen [Tylenol -] 500 mg PO Q4H #30 tablet 06/18/17 Ferrous Sulfate [Feosol] 325 mg PO BIDPC #60 tab 06/18/17 Ibuprofen [Motrin -] 600 mg PO QID #30 tablet 06/18/17 Vitamins (Sjr) - 1 tab PO DAILY #30 tablet 06/18/17
[2017-06-18 08:40] LABS: BASO % 0.5 % (0-2.0); EOS % 1.2 % (0-4.5); HEMATOCRIT 26.9 % (32.4-45.2); HEMOGLOBIN 8.1 GM/dL (10.7-15.3); MCHC 30.1 g/dl (32.0-36.0); MEAN CELL VOLUME 63.4 fl (80-96); MEAN PLT VOLUME 8.8 fl (7.5-11.1); MONO % 7.4 % (3.8-10.2); NEUT % 66.9 % (42.8-82.8); RBC 4.25 M/mm3 (3.60-5.2); WHITE BLOOD COUNT 10.1 K/mm3 (4.0-10.0)
[2017-06-18 09:00] LABS: ADD RBC MORPHOLOGY YES; MCH 19.1 pg (25.7-33.7)
[2017-06-18] MEDS: ENOXAPARIN NA (PORCINE) 40 MG/0.4 ML DISP.SYRIN SQ SCH (09:16)
[2017-06-18] MEDS: PRENATAL VITAMINS W/ FOLIC ACID TABLET (FP) PO SCH (09:16)
[2017-06-18] MEDS: FERROUS SO4 325 MG TABLET (FP) PO SCH (09:16)
[2017-06-18] MEDS: ESCITALOPRAM OXALATE 10 MG TABLET (FP) PO SCH (09:16)
[2017-06-18 11:49] LABS: PLATELET COUNT 225 K/MM3 (134-434); PLATELET ESTIMATE ADEQUATE
--- NOTE | 2017-06-19 13:21 | PATH ---
Surgical Pathology Report Patient Name: MONET CHAVEZ Med. Rec. #: [id number] /Age/Gender: 1990 (Age: 26) / F Account: [id number] Location: [facility] OBS/LOSS PREVENTION INVESTIGATOR Taken: 06/15/2017 Received: 06/17/2017 Reported: 06/19/2017 Physicians: Malka Viera M.D. Specimen(s) Received PLACENTA Clinical History Final Diagnosis PLACENTA, DELIVERY: FOCALLY DISRUPTED THIRD TRIMESTER PLACENTA WITH THREE VESSEL UMBILICAL CORD AND UNREMARKABLE PLACENTAL MEMBRANES. Electronically Signed Burt Hicks M.D. Gross Description The specimen is received fresh labeled placenta and is a 742 gram, 23.0 x 16.5 x 2.8 cm. placenta with attached membranes and umbilical cord. The attached membranes are villafana, translucent with focal opacities and display focal circumarginate insertion. The umbilical cord measures 41 cm. in length and averages 1.2 cm. in diameter. The cord inserts centrally. No true knots or strictures are identified. Cut surface of the umbilical cord reveals 3 vessels. The surface is wyman blue with moderate fibrin deposition and appropriate caliber vessels. The maternal surface is red-brown with focal defects. Sectioning reveals red-brown, spongy parenchyma. No lesions are identified. Occupational Therapy Specialist sections are submitted in three cassettes as follows: 1- membrane rolls and umbilical cord; 2-3- full thickness sections of placenta. 06/18/2017 saudi06/18/2017
== END 2017-06-18 13:05 | disposition home or self-care (01) | DRG 540 ==
LOC: JDEL 08:52 → JLDR 10:30 → J3W 20:00
PROVIDERS: ADMIT Obstetrics & Gynecology; ATTEND Obstetrics & Gynecology
PROC: 10D00Z1 Extraction of Products of Conception, Low, Open Approach (ICD-10-PCS; principal; 2017-06-15)
DX: O34.211 Maternal care for low transverse scar from previous cesarean delivery (principal); N85.8 Other specified noninflammatory disorders of uterus; O99.013 Anemia complicating pregnancy, third trimester; O99.343 Other mental disorders complicating pregnancy, third trimester; F41.8 Other specified anxiety disorders; Z37.0 Single live birth
CPT/HCPCS: 36415; 59025; 76819-TC; 80053; 80307; 81003; 81015; 84550; 85025; 85610; 85730; 86593; 86850; 86900; 86901; 88307-TC; 90715

== ENCOUNTER 2018-07-11 19:58 | Emergency (ER) | payer OTHER ==
--- NOTE | 2018-07-11 20:16 | PDOC ---
History of Present Illness - General Stated Complaint: ABDOMINAL PAIN Time Seen by Provider: 07/11/18 20:15 Past History - Past Medical History Allergies/Adverse Reactions: Allergies Allergy/AdvReac Type Severity Reaction Status Date / Time No Known Allergies Allergy Verified 06/15/17 11:39 Home Medications: Ambulatory Orders Albuterol Sulfate Inhaler - [Ventolin HFA Inhaler -] 1 - 2 inh PO QID PRN Ferrous Sulfate [Feosol] 325 mg PO DAILY 06/15/17 Acetaminophen [Tylenol -] 500 mg PO Q4H #30 tablet 06/18/17 Ferrous Sulfate [Feosol] 325 mg PO BIDPC #60 tab 06/18/17 Ibuprofen [Motrin -] 600 mg PO QID #30 tablet 06/18/17 Vitamins (Sjr) - 1 tab PO DAILY #30 tablet 06/18/17 Anemia: No Asthma: Yes Cancer: No Cardiac Disorders: No CVA: No COPD: No CHF: No Dementia: No Diabetes: No GI Disorders: No Disorders: No HTN: No Hypercholesterolemia: No Liver Disease: No Seizures: No Thyroid Disease: No - Surgical History Abdominal Surgery: No Appendectomy: No Cardiac Surgery: No Cholecystectomy: No Lung Surgery: No Neurologic Surgery: No Orthopedic Surgery: No - Reproductive History (#): 2 Para: 1 - Suicide/Smoking/Psychosocial Hx Smoking History: Never smoked Have you smoked in the past 12 months: Yes Hx Alcohol Use: No Drug/Substance Use Hx: No Substance Use Type: None Hx Substance Use Treatment: No
[2018-07-11 20:25] VITALS: BMI 29.0
[2018-07-11] MEDS ORDERED: ONDANSETRON 4 MG/2 ML VIAL IVPB ONE (20:41)
[2018-07-11] MEDS ORDERED: LACTATED RINGERS SOLUTION 1000 ML INFUS.BAG IV ONE (20:41)
[2018-07-11] MEDS ORDERED: morphine CARPU-JECT 4 MG/1 ML DISP.SYRIN IVPUSH ONE ×2 (20:50→22:57)
[2018-07-11 21:09] LABS: BASO % 0.6 % (0-2.0); HEMATOCRIT 32.6 % (32.4-45.2); HEMOGLOBIN 10.5 GM/dL (10.7-15.3); LYMPH % 8.5 % (8-40); MCH 22.1 pg (25.7-33.7); MCHC 32.2 g/dl (32.0-36.0); MEAN CELL VOLUME 68.5 fl (80-96); MEAN PLT VOLUME 8.7 fl (7.5-11.1); MONO % 2.5 % (3.8-10.2); NEUT % 88.4 % (42.8-82.8); PLATELET COUNT 339 K/MM3 (134-434); RBC 4.76 M/mm3 (3.60-5.2); RDW 20.3 % (11.6-15.6); WHITE BLOOD COUNT 16.3 K/mm3 (4.0-10.0)
[2018-07-11] MEDS ORDERED: morphine SULFATE 4 MG/ML VIAL ONE (21:14)
[2018-07-11] MEDS ORDERED: ONDANSETRON 4 MG/2 ML VIAL ONE (21:14)
--- NOTE | 2018-07-11 21:27 | PDOC ---
History of Present Illness - General Chief Complaint: Pain, Acute Stated Complaint: ABDOMINAL PAIN Time Seen by Provider: 07/11/18 20:15 History Source: Patient, Significant Other Exam Limitations: Clinical Condition - History of Present Illness Initial Comments: 07/11/18 21:22 Pt is a 27yo F with PMH of Asthma, s/p cesarian section 05/2017 BIBA for abdominal pain. Per partner, pt was at the grocery store a few hours ago and had sudden onset L sided abdominal pain. Pt went home and tried to have a bowel movement but could not. She had 4-6 episodes of yellow emesis. Last BM was this morning and was not tarry or bloody. Pt endorses nausea. Denies fevers , chills, chest pain, SOB, vaginal bleeding, abnormal vaginal discharge, history of STD. PMD: Antenucchia? PMH: see hpi PSH: see hpi Meds: see med red Social: denies Allergies: nkda Past History - Past Medical History Allergies/Adverse Reactions: Allergies Allergy/AdvReac Type Severity Reaction Status Date / Time No Known Allergies Allergy Verified 07/11/18 20:23 Home Medications: Ambulatory Orders Albuterol Sulfate Inhaler - [Ventolin HFA Inhaler -] 1 - 2 inh PO QID PRN Ferrous Sulfate [Feosol] 325 mg PO DAILY 06/15/17 Acetaminophen [Tylenol -] 500 mg PO Q4H #30 tablet 06/18/17 Ferrous Sulfate [Feosol] 325 mg PO BIDPC #60 tab 06/18/17 Ibuprofen [Motrin -] 600 mg PO QID #30 tablet 06/18/17 Vitamins (Sjr) - 1 tab PO DAILY #30 tablet 06/18/17 Naproxen 500 mg PO BID PRN #20 tablet 07/11/18 Ondansetron HCl [Zofran] 4 mg PO Q8H PRN #20 tablet 07/11/18 Oxycodone HCl/Acetaminophen [Percocet 5-325 mg Tablet] 1 tab PO Q6H PRN #15 tablet MDD 4 07/11/18 Tamsulosin HCl [Flomax] 0.4 mg PO DAILY #14 capsule 07/11/18 Anemia: No Asthma: Yes Cancer: No Cardiac Disorders: No CVA: No COPD: No CHF: No Dementia: No Diabetes: No GI Disorders: No Disorders: No HTN: No Hypercholesterolemia: No Liver Disease: No Seizures: No Thyroid Disease: No - Surgical History Abdominal Surgery: No Appendectomy: No Cardiac Surgery: No Cholecystectomy: No Lung Surgery: No Neurologic Surgery: No Orthopedic Surgery: No - Reproductive History (#): 2 Para: 1 - Suicide/Smoking/Psychosocial Hx Smoking History: Unknown if ever smoked Have you smoked in the past 12 months: No Information on smoking cessation initiated: No Hx Alcohol Use: No (unknown) Drug/Substance Use Hx: No (unknown) Substance Use Type: None Hx Substance Use Treatment: No Review of Systems - Review of Systems Constitutional: No: Chills, Fever, Weakness HEENTM: No: Symptoms Reported Respiratory: No: Symptoms reported ABD/GI: Yes: See HPI, Nausea, Vomiting, Abdominal cramping. No: Constipated, Diarrhea, Rectal Bleeding, Tarry Stools : Yes: Flank Pain. No: Burning, Dysuria, Hematuria Musculoskeletal: No: Back Pain, Joint Pain, Neck Pain Integumentary: No: Symptoms Reported Neurological: No: Symptoms reported *Physical Exam - Vital Signs Last Vital Signs Temp Pulse Resp BP Pulse Ox 97.4 F L 60 18 116/74 100 07/11/18 20:21 07/11/18 20:21 07/11/18 20:05 07/11/18 20:21 07/11/18 20:21 - Physical Exam General Appearance: Yes: Nourished, Appropriately Dressed, Severe Distress, Other (moving around stretcher) HEENT: positive: EOMI, HEIDI Neck: positive: Trachea midline, Supple. negative: Lymphadenopathy (R), Lymphadenopathy (L) Respiratory/Chest: positive: Lungs Clear, Normal Breath Sounds. negative: Crackles, Rales, Rhonchi, Stridor, Wheezing Cardiovascular: positive: Regular Rhythm, Regular Rate, S1, S2. negative: Edema , JVD, Murmur Vascular Pulses: Carotid (R): 2+, Carotid (L): 2+, Dorsalis-Pedis (R): 2+, Doralis-Pedis (L): 2+ Gastrointestinal/Abdominal: positive: Normal Bowel Sounds, Soft, Tenderness. negative: Distended (LUQ, LLQ), Guarding, Rebound, Hernia Musculoskeletal: positive: CVA Tenderness (L). negative: CVA Tenderness (R) Extremity: positive: Normal Capillary Refill, Pelvis Stable. negative: Pedal Edema, Swelling, Calf Tenderness Integumentary: positive: Normal Color, Dry, Warm Neurologic: positive: paraprofessional interpreter II-XII NML intact, Fully Oriented, Alert, Normal Mood/ Affect, Normal Response, Motor Strength 5/5 Moderate Sedation - Procedure Monitoring Vital Signs: Procedure Monitoring Vital Signs Temperature 97.4 F L 07/11/18 20:21 Pulse Rate 60 07/11/18 20:21 Respiratory Rate 18 07/11/18 20:05 Blood Pressure 116/74 07/11/18 20:21 O2 Sat by Pulse Oximetry (%) 100 07/11/18 20:21 ED Treatment Course - LABORATORY CBC & Chemistry Diagram: 07/11/18 21:01 07/11/18 21:01 - ADDITIONAL ORDERS Additional order review: Laboratory Results 07/11/18 21:01 WBC 16.3 H RBC 4.76 Hgb 10.5 L Hct 32.6 MCV 68.5 L MCH 22.1 L MCHC 32.2 RDW 20.3 H Plt Count 339 MPV 8.7 Absolute Neuts (auto) 14.4 H Neutrophils % 88.4 H D Lymphocytes % 8.5 D Monocytes % 2.5 L Eosinophils % 0.0 D Basophils % 0.6 Nucleated RBC % 0 07/11/18 21:01 RBC 4.76 MCV 68.5 L MCHC 32.2 RDW 20.3 H MPV 8.7 Neutrophils % 88.4 H D Lymphocytes % 8.5 D Monocytes % 2.5 L Eosinophils % 0.0 D Basophils % 0.6 - RADIOLOGY Radiology Studies Ordered: Category Date Time Status SPIRAL- RENAL-STONE CT [CT] Stat CT Scan 07/11/18 20:51 Ordered Medical Decision Making - Medical Decision Making 07/11/18 21:27 Pt is a 27yo F with PMH of Asthma, s/p cesarian section 05/2017 BIBA for abdominal pain. Per partner, pt was at the grocery store a few hours ago and had sudden onset L sided abdominal pain. Vitals:wnl PE: writhing in pain, LUQ, LLQ and L CVA tenderness. High suspicion for nephrolithiasis or SBO. cbc, cmp, serum , UA. -4 morphine, IV fluids, Zofran -Spiral CT Labs significant for white count 16 and hgb 10.5 (baseline) CT: Stone in L ureter. Pt given toradol. Negative UA, low suspicion for septic stone. Home Rx by Dr. Awad. Pt dc home. Referral to urologist. *DC/Admit/Observation/Transfer Diagnosis at time of Disposition: Kidney stone - Discharge Dispostion Disposition: HOME Condition at time of disposition: Improved - Prescriptions Prescriptions: Naproxen 500 mg PO BID PRN #20 tablet PRN Reason: Pain Ondansetron HCl [Zofran] 4 mg PO Q8H PRN #20 tablet PRN Reason: Nausea Oxycodone HCl/Acetaminophen [Percocet 5-325 mg Tablet] 1 tab PO Q6H PRN #15 tablet MDD 4 PRN Reason: Severe Pain Tamsulosin HCl [Flomax] 0.4 mg PO DAILY #14 capsule - Referrals Referrals: Angelica Cornejo MD [Staff Physician] - - Patient Instructions Printed Discharge Instructions: DI for Kidney Stones Additional Instructions: You have a small 2 mm kidney stone on the left side. This will likely pass. Please drink plenty of fluids and rest. It may take 1 to several days before you may pass the stone. For pain control, take a 500 mg naproxen every 12 hours as needed. For additional relief, you may take a tablet of percocet every 8 hours as needed. Take a tablet of zofran every 8 hours as needed for nausea. Please follow up with a urologist. There is a small hypodense finding on your liver incidentally on CT. This may be a cyst. But please let your doctor know and follow up with the doctor. - Post Discharge Activity Forms/Work/School Notes: Back to Work
[2018-07-11 21:31] LABS: ALK PHOS 105 U/L (45-117); ANION GAP 9 MMOL/L (8-16); BILIRUBIN,TOTAL 0.4 mg/dL (0.2-1); BLOOD UREA NITROGEN 12 mg/dL (7-18); CALCIUM 8.6 mg/dL (8.5-10.1); CHLORIDE 107 mmol/L (98-107); CO2 25 mmol/L (21-32); CREATININE 0.9 mg/dL (0.55-1.3); GLUCOSE,RANDOM 130 mg/dL (74-106); POTASSIUM 3.5 mmol/L (3.5-5.1); SGOT/AST 22 U/L (15-37); SGPT/ALT 25 U/L (13-61); SODIUM 141 mmol/L (136-145); TOT PROT 7.9 g/dl (6.4-8.2)
--- NOTE | 2018-07-11 22:17 | PDOC ---
Attending Attestation - HPI HPI: 07/11/18 22:26 The patient is a 27 year old female with a past medical history of asthma brought in by EMS today for evaluation of abdominal pain. The patient reports that her abdominal pain started this afternoon when at the grocery store. Patient reports trying to have a bowel movement but could not. She notes her abdominal pain is most prominent on the left side of her abdomen. She notes associated nausea and vomiting and reports that she had 4-6 episodes of yellow emesis. Patient also reports that her LMP was a few weeks ago and was normal. Patient denies headache, lightheadedness. Denies fever, chills. Denies chest pain, shortness of breath. Denies diarrhea. Allergies: NKA Surgical history: 06/01 - Physicial Exam PE: 07/11/18 22:26 GENERAL: +uncomfortable appearance. Awake, alert, and fully oriented HEAD: No signs of trauma EYES: PERRLA, EOMI, sclera anicteric, conjunctiva clear ENT: Auricles normal inspection, hearing grossly normal, nares patent. Moist mucosa NECK: Normal ROM, supple, JVD ABDOMEN: +left mid abdominal tenderness. +left lower quadrant tenderness. +left CVA tenderness. Soft. No guarding, no rebound. No masses EXTREMITIES: Normal range of motion, no edema. No clubbing or cyanosis. No cords, erythema, or tenderness NEUROLOGICAL: Cranial nerves II through XII grossly intact. Normal speech, normal gait SKIN: Warm, Dry, normal turgor, no rashes or lesions noted. - Medical Decision Making 07/11/18 22:26 Documentation prepared by JEVON Malik, acting as medical sales for Rolando Awad MD. <Mingo Merrill - Last Filed: 07/11/18 22:26> - Resident Resident Name: Dipika Maria - ED Attending Attestation I have performed the following: I have examined & evaluated the patient, The case was reviewed & discussed with the resident, I agree w/resident's findings & plan, Exceptions are as noted - Medical Decision Making 07/11/18 22:23 A portion of this note was documented by scribe services under my direction. I have reviewed the details of the note, within reason, and agree with the documentation with the following case summary and management plan written by me. Patient treated in the ED. Nursing notes are reviewed and incorporated into the medical decision-making. Vital signs reviewed. Peripheral IV access obtained by the nurse, laboratory studies are drawn and sent, reviewed and interpreted by myself. Vital Signs Temp Pulse Resp BP Pulse Ox 97.4 F L 60 18 116/74 100 07/11/18 20:21 07/11/18 20:21 07/11/18 20:05 07/11/18 20:21 07/11/18 20:21 27-year-old female with past medical history of asthma, section in 2017 presents with left-sided abdominal pain since today. The patient started no that she's having left flank pain with several episodes of nausea and vomiting. Had a normal palpable movement today. No dysuria. Patient arrived in severe pain. First-time episode. Differential includes renal colic, bowel obstruction, colitis, acute diverticulitis, gastroenteritis. Will obtain labs, UA/UC, CT abdomen and pelvis and reassess. 07/11/18 23:19 CBC, BMP 07/11/18 21:01 07/11/18 21:01 CMP Sodium 141 mmol/L (136-145) 07/11/18 21:01 Potassium 3.5 mmol/L (3.5-5.1) 07/11/18 21:01 Chloride 107 mmol/L (98-107) 07/11/18 21:01 Carbon Dioxide 25 mmol/L (21-32) 07/11/18 21:01 Anion Gap 9 MMOL/L (8-16) 07/11/18 21:01 BUN 12 mg/dL (7-18) 07/11/18 21:01 Creatinine 0.9 mg/dL (0.55-1.3) 07/11/18 21:01 Creat Clearance w eGFR > 60 (>60) 07/11/18 21:01 Random Glucose 130 mg/dL (74-106) H 07/11/18 21:01 Calcium 8.6 mg/dL (8.5-10.1) 07/11/18 21:01 Total Bilirubin 0.4 mg/dL (0.2-1) 07/11/18 21:01 AST 22 U/L (15-37) 07/11/18 21:01 ALT 25 U/L (13-61) 07/11/18 21:01 Alkaline Phosphatase 105 U/L (45-117) 07/11/18 21:01 Total Protein 7.9 g/dl (6.4-8.2) 07/11/18 21:01 Albumin 4.0 g/dl (3.4-5.0) 07/11/18 21:01 Lipase 115 U/L (73-393) 07/11/18 21:01 Serum , Qual Negative 07/11/18 21:01 Urine Test Results Urine Color Ltyellow 07/11/18 23:05 Urine Appearance Slcloudy 07/11/18 23:05 Urine pH 6.0 (5.0-8.0) 07/11/18 23:05 Ur Specific [place] 1.010 (1.010-1.035) 07/11/18 23:05 Urine Protein Negative (NEGATIVE) 07/11/18 23:05 Urine Glucose (UA) Negative (NEGATIVE) 07/11/18 23:05 Urine Ketones Trace (NEGATIVE) H 07/11/18 23:05 Urine Blood 3+ (NEGATIVE) H 07/11/18 23:05 Urine Nitrite Negative (NEGATIVE) 07/11/18 23:05 Urine Bilirubin Negative (<2.0 mg/dL) 07/11/18 23:05 Ur Leukocyte Esterase Negative (NEGATIVE) 07/11/18 23:05 Ur Epithelial Cells Rare /HPF (FEW) 07/11/18 23:05 Urine Mucus Rare 07/11/18 23:05 CTwith 2mm calculus, left UV junction. Also with hypodense lesion in right lobe liver. Will inform patient and have her follow up. <Rolando Awad - Last Filed: 07/11/18 23:34> *DC/Admit/Observation/Transfer - Discharge Dispostion Decision to Admit order: No <Rolando Awad - Last Filed: 07/11/18 23:34> Diagnosis at time of Disposition: Kidney stone - Discharge Dispostion Disposition: HOME Condition at time of disposition: Improved - Prescriptions Prescriptions: Naproxen 500 mg PO BID PRN #20 tablet PRN Reason: Pain Ondansetron HCl [Zofran] 4 mg PO Q8H PRN #20 tablet PRN Reason: Nausea Oxycodone HCl/Acetaminophen [Percocet 5-325 mg Tablet] 1 tab PO Q6H PRN #15 tablet MDD 4 PRN Reason: Severe Pain Tamsulosin HCl [Flomax] 0.4 mg PO DAILY #14 capsule - Referrals Referrals: Angelica Cornejo MD [Staff Physician] - - Patient Instructions Printed Discharge Instructions: DI for Kidney Stones Additional Instructions: You have a small 2 mm kidney stone on the left side. This will likely pass. Please drink plenty of fluids and rest. It may take 1 to several days before you may pass the stone. For pain control, take a 500 mg naproxen every 12 hours as needed. For additional relief, you may take a tablet of percocet every 8 hours as needed. Take a tablet of zofran every 8 hours as needed for nausea. Please follow up with a urologist. There is a small hypodense finding on your liver incidentally on CT. This may be a cyst. But please let your doctor know and follow up with the doctor. - Post Discharge Activity Forms/Work/School Notes: Back to Work
[2018-07-11] MEDS ORDERED: MORPHINE SULFATE 2 MG/ML VIAL ONE (23:00)
[2018-07-11 23:12] LABS: URINE APPEARANCE SLCLOUDY; URINE BILIRUBIN NEGATIVE (<2.0 mg/dL); URINE COLOR LTYELLOW; URINE GLUCOSE (UA) NEGATIVE (NEGATIVE); URINE KETONE TRACE (NEGATIVE); URINE LEUK ESTERASE NEGATIVE (NEGATIVE); URINE NITRITE NEGATIVE (NEGATIVE); URINE PROTEIN NEGATIVE (NEGATIVE); URINE UROBILINOGEN NEGATIVE mg/dL (0.2-1.0)
[2018-07-11 23:16] LABS: EPI CELLS RARE /HPF (FEW); URINE MUCUS RARE
[2018-07-11] MEDS ORDERED: KETOROLAC TROMETHAMINE 30 MG/1 ML VIAL IVPUSH ONE (23:27)
[2018-07-11] MEDS ORDERED: TAMSULOSIN HCL 0.4 MG CAP PO ONE (23:27)
[2018-07-11] MEDS ORDERED: KETOROLAC TROMETHAMINE 30 MG/1 ML VIAL ONE (23:53)
[2018-07-11] MEDS ORDERED: TAMSULOSIN HCL 0.4 MG CAP ONE (23:53)
[2018-07-12 01:04] VITALS: BP 122/71; PULSE 77; TEMP 98.4
== END 2018-07-12 00:15 | disposition home or self-care (01) ==
LOC: JER 19:58
PROC: 3E033NZ Introduction of Analgesics, Hypnotics, Sedatives into Peripheral Vein, Percutaneous Approach (ICD-10-PCS; principal; 2018-07-11)
PROC: 3E033GC Introduction of Other Therapeutic Substance into Peripheral Vein, Percutaneous Approach (ICD-10-PCS; 2018-07-11)
PROC: 3E0333Z Introduction of Anti-inflammatory into Peripheral Vein, Percutaneous Approach (ICD-10-PCS; 2018-07-11)
DX: N20.0 Calculus of kidney (principal)
CPT/HCPCS: 36415; 74176; 80053; 81003; 81015; 83690; 84703; 85025; 87086; 96374; 96375; 96376; 99282-25